=== PATIENT | female | born 1930 | race African-American/Black ===

== ENCOUNTER 2017-06-27 22:18 | Inpatient (IN) | payer OTHER, MEDICAID ==
[~2017-06-27] VITALS: Ht 170.2 cm; Wt 72.6 kg
[2017-06-27] MEDS ORDERED: SODIUM CHLORIDE 0.9% 1,000 ML IV ONE (23:18)
[2017-06-27 23:59] LABS: BASOPHILS % 0.8 % (0.0-2.0); EOSINOPHILS % 2.4 % (0.0-5.0); HEMATOCRIT. 32.8 % (36.0-48.0); HEMOGLOBIN. 10.6 g/dL (12.0-16.0); LYMPHOCYTES % 17.9 % (20.0-50.0); MEAN CORPUSCULAR HEMOGLOBIN 27.9 pg (28.0-32.0); MEAN CORPUSCULAR VOLUME 86.2 fL (81.0-99.0); MEAN PLATELET VOLUME 9.8 fl (7.4-10.4); MONOCYTES % 8.4 % (2.0-8.0); NEUTROPHILS % 70.5 % (40.0-76.0); PLATELET 212 x1000/uL (130-400); RED BLOOD CELL COUNT 3.81 mill/uL (4.2-5.4)
[2017-06-28 00:03] LABS: CARBON DIOXIDE 25 mEq/L (21-32); CHLORIDE 107 mEq/L (98-107); TROPONIN I < 0.02 ng/mL (0.00-0.04)
[2017-06-28 00:51] LABS: CLARITY URINE CLEAR (CLEAR); COLOR URINE YELLOW (YELLOW); GLUCOSE URINE NEGATIVE (NEGATIVE); KETONES URINE NEGATIVE (NEGATIVE); LEUKOCYTE ESTERASE URINE NEGATIVE (NEGATIVE); NITRITE URINE NEGATIVE (NEGATIVE); OCCULT BLOOD URINE NEGATIVE (NEGATIVE); PH URINE 5.5 (4.5-8.0); PROTEIN URINE 1+ (NEGATIVE); SPECIFIC GRAVITY URINE 1.011 (1.005-1.030); UROBILINOGEN URINE 0.2 E.U./dL (0.2-1.0)
[2017-06-28] MEDS ORDERED: ACETAMINOPHEN 325MG TABLET PO PRN (01:15)
[2017-06-28 04:35] VITALS: BP 172/55
[2017-06-28] MEDS ORDERED: ATOR10TA69 PO (06:08)
[2017-06-28] MEDS ORDERED: NIFE60TA64 PO (06:08)
[2017-06-28] MEDS ORDERED: ERGO500013 PO (06:08)
[2017-06-28] MEDS ORDERED: SITA100T11 PO (06:08)
[2017-06-28] MEDS ORDERED: HYDR-4009 PO (06:08)
[2017-06-28] MEDS ORDERED: FERR-71 PO (06:08)
[2017-06-28] MEDS ORDERED: CLOP75TA33 PO (06:08)
[2017-06-28] MEDS ORDERED: ATEN50TA PO (06:08)
[2017-06-28] MEDS ORDERED: DICL75TA5 PO (06:08)
[2017-06-28 08:00] VITALS: BP 188/55
[2017-06-28] MEDS ORDERED: MEDICATION NOT ON FORMULARY EA (Sitagliptin Phosphate (Januvia) 100 MG) PO SCH (09:00)
[2017-06-28] MEDS ORDERED: HYDROCODONE/ACETAMINOPHEN 10/325MG TABLET PO PRN (09:00)
[2017-06-28] MEDS ORDERED: ONDANSETRON HCL 4MG/2ML VIAL IV PRN (09:00)
[2017-06-28] MEDS ORDERED: DEXTROSE 50% WATER 50ML SYRINGE IV PRN (09:00)
[2017-06-28] MEDS: NIFEDIPINE XL 60MG TAB PO SCH (09:36)
[2017-06-28] MEDS: CLOPIDOGREL 75MG TABLET PO SCH (09:36)
[2017-06-28] MEDS: ASPIRIN 81MG TABLET PO SCH (09:36)
[2017-06-28] MEDS: FERROUS SULFATE 325MG TABLET PO SCH ×2 (09:36→18:13)
[2017-06-28] MEDS: DICLOFENAC SODIUM 75MG DR (EC) TABLET PO SCH ×2 (09:37→18:13)
[2017-06-28] MEDS ORDERED: SODIUM POLYSTYRENE SULFONATE 15 G/60 ML BOT PO SCH (11:45)
[2017-06-28 12:00] VITALS: BP_SYST 165; BP_SYST 187; BP_SYST 189; BP_DIAS 59; BP_DIAS 73; BP_DIAS 80
[2017-06-28] MEDS: CLONIDINE 0.1MG TABLET PO PRN ×2 (12:29→18:37)
[2017-06-28] MEDS: BLOOD SUGAR DIAGNOSTIC STRIP TEST SCH ×3 (12:40→21:11)
[2017-06-28] MEDS: INSULIN LISPRO 100 UNITS/ML SUBCUT SCH ×3 (13:10→21:00)
[2017-06-28 16:00] VITALS: BP 176/94
[2017-06-28 17:26] LABS: CREATINE KINASE 99 IU/L (26-192); CREATINE KINASE MB FRACTION 0.9 ng/mL (0.5-3.6); TROPONIN I < 0.02 ng/mL (0.00-0.04)
[2017-06-28 20:00] VITALS: BP_SYST 165; BP_SYST 167; BP_DIAS 66; BP_DIAS 72; BP_DIAS 84
[2017-06-28] MEDS ORDERED: ATORVASTATIN CALCIUM 10MG TABLET PO SCH (21:00)
[2017-06-29] VITALS: BP 155/68
[2017-06-29 01:37] LABS: CREATINE KINASE 84 IU/L (26-192); CREATINE KINASE MB FRACTION 1.1 ng/mL (0.5-3.6); TROPONIN I < 0.02 ng/mL (0.00-0.04)
[2017-06-29 04:00] VITALS: BP 152/51
[2017-06-29] MEDS: BLOOD SUGAR DIAGNOSTIC STRIP TEST SCH ×2 (07:40→13:01)
[2017-06-29 08:00] VITALS: BP_SYST 162; BP_SYST 182; BP_SYST 186; BP_DIAS 66; BP_DIAS 71; BP_DIAS 73
[2017-06-29 08:08] LABS: CREATINE KINASE 75 IU/L (26-192); CREATINE KINASE MB FRACTION 1.1 ng/mL (0.5-3.6); TROPONIN I < 0.02 ng/mL (0.00-0.04)
[2017-06-29] MEDS: INSULIN LISPRO 100 UNITS/ML SUBCUT SCH ×2 (08:10→13:02)
[2017-06-29] MEDS: CLOPIDOGREL 75MG TABLET PO SCH (08:48)
[2017-06-29] MEDS: NIFEDIPINE XL 60MG TAB PO SCH (08:48)
[2017-06-29] MEDS: FERROUS SULFATE 325MG TABLET PO SCH (08:48)
[2017-06-29] MEDS: DICLOFENAC SODIUM 75MG DR (EC) TABLET PO SCH (08:48)
[2017-06-29] MEDS: ASPIRIN 81MG TABLET PO SCH (08:49)
[2017-06-29] MEDS ORDERED: AMLODIPINE 5MG TABLET PO SCH (09:00)
[2017-06-29 12:00] VITALS: BP 167/80
[2017-06-29 12:03] VITALS: BP 160/70
[2017-07-01] MEDS ORDERED: ERGOCALCIFEROL 50000UNITS CAPSULE PO SCH (09:00)
== END 2017-06-29 13:20 | disposition home or self-care (01) | DRG 309 ==
LOC: ER 22:18 → 7WST 06-28 01:13 → EDBEDREQ 06-28 01:25 → ENRESERV 06-28 02:25
PROVIDERS: ADMIT Hospitalist; ATTEND Hospitalist
DX: R00.1 Bradycardia, unspecified (principal); N17.9 Acute kidney failure, unspecified; E11.22 Type 2 diabetes mellitus with diabetic chronic kidney disease; E87.5 Hyperkalemia; D50.9 Iron deficiency anemia, unspecified; E78.5 Hyperlipidemia, unspecified; I12.9 Hypertensive chronic kidney disease with stage 1 through stage 4 chronic kidney disease, or unspecified chronic kidney disease; I25.10 Atherosclerotic heart disease of native coronary artery without angina pectoris; N18.9 Chronic kidney disease, unspecified; I25.2 Old myocardial infarction; Z98.61 Coronary angioplasty status; Z79.82 Long term (current) use of aspirin
CPT/HCPCS: 36415; 70450; 71010; 73562; 80053; 81001; 82550; 82553; 82962; 84443; 84484; 85025; 93005; 93306; 93880; 96360; 99285; J7030